=== PATIENT | female | born 1970 | race Caucasian/White ===

== ENCOUNTER 2019-04-30 20:12 | Inpatient (IN) | payer BC ==
[~2019-04-30] VITALS: Ht 162.5 cm; Wt 54.4 kg
[~2019-04-30 20:12] MED LIST: DAYPRO600 M1 PO; VICODIN 500 MG-1 TAB PO
[2019-04-30 20:13] VITALS: BP 116/68
[2019-04-30 21:25] LABS: BASO % 0.7 % (0.0-1.0); EOS # 0.2 10*3/uL (0.0-0.4); EOS % 3.4 % (1.0-4.0); HEMATOCRIT 38.8 % (37.0-47.0); HEMOGLOBIN 12.7 g/dl (12.0-16.0); LYMPH % 34.7 % (27.0-41.0); MEAN CORPUSCULAR HGB 31.4 pg (27.0-31.0); MEAN CORPUSCULAR HGB CONC 32.7 g/dl (33.0-37.0); MEAN PLATELET VOLUME 9.5 fl (9.6-12.3); MONO # 0.5 10*3/uL (0.1-1.0); MONO % 8.4 % (3.0-9.0); NEUT # 3.1 10*3/uL (2.3-7.9); NEUT % 52.6 % (47.0-73.0); PLATELET COUNT AUTOMATED 149 10*3/uL (130-400); RED BLOOD COUNT 4.04 10*6/uL (4.10-5.10); RED CELL DISTRI WIDTH 12.6 % (0-14.5); WHITE BLOOD COUNT 5.8 10*3/uL (4.8-10.8)
[2019-04-30 21:42] LABS: ALBUMIN 3.4 gm/dl (3.1-4.5); ALKALINE PHOSPHATASE 414 U/L (45-117); BUN 23 mg/dl (7-24); CHLORIDE 109 mmol/L (98-107); CREATININE 0.91 mg/dL (0.55-1.02); LIPASE 210 U/L (73-393); POTASSIUM 3.8 mmol/L (3.5-5.1); SGOT/AST 97 IU/L (3-35); SGPT/ALT 172 U/L (12-78); SODIUM 139 mmol/L (136-145); TOTAL PROTEIN 6.3 gm/dL (6.4-8.2)
--- NOTE | 2019-04-30 22:50 | NUR ---
PATIENT STATES THAT HER PAIN IS MUCH BETTER NOW THEN BEFORE. PATIENT WITH NO OTHER COMPLAINTS.
[2019-04-30 22:55] LABS: BILIRUBIN NEGATIVE (NEGATIVE); BLOOD 1+ (NEGATIVE); CLARITY CLEAR (CLEAR); COLOR YELLOW (YELLOW); GLUCOSE NEGATIVE (NEGATIVE); KETONE NEGATIVE (NEGATIVE); LEUKO ESTERASE NEGATIVE (NEGATIVE); NITRITE NEGATIVE (NEGATIVE); SPECIFIC GRAVITY 1.015 (1.005-1.030); UROBILINOGEN 0.2 E.U./dl (0.2-1.0)
[2019-04-30 23:05] LABS: BACTERIA TRACE; EPITHELIAL CELLS 0-2; YEAST TRACE
[2019-05-01 01:30] VITALS: BP 120/72
--- NOTE | 2019-05-01 02:03 | NUR ---
PATIENT SWITCHED TO FLOOR BED.
[2019-05-01 04:10] VITALS: BP 108/62
--- NOTE | 2019-05-01 04:10 | NUR ---
Time: 409 A 48 year old FEMALE admitted to 5E under services of JUVE PATRICK DO. Pt. arrived via bed from ER. Chief complaint: TRANSAMINITIS, ABDOMINAL PAIN. GRANT GOMES
[2019-05-01 06:42] LABS: BASO % 0.7 % (0.0-1.0); EOS # 0.2 10*3/uL (0.0-0.4); EOS % 5.7 % (1.0-4.0); HEMATOCRIT 38.7 % (37.0-47.0); HEMOGLOBIN 12.7 g/dl (12.0-16.0); LYMPH # 1.5 10*3/uL (1.3-4.4); LYMPH % 37.8 % (27.0-41.0); MEAN CELL VOLUME 96.5 fl (81.0-99.0); MEAN CORPUSCULAR HGB 31.7 pg (27.0-31.0); MEAN CORPUSCULAR HGB CONC 32.8 g/dl (33.0-37.0); MEAN PLATELET VOLUME 9.5 fl (9.6-12.3); MONO # 0.4 10*3/uL (0.1-1.0); MONO % 9.1 % (3.0-9.0); NEUT # 1.9 10*3/uL (2.3-7.9); NEUT % 46.5 % (47.0-73.0); PLATELET COUNT AUTOMATED 141 10*3/uL (130-400); RED BLOOD COUNT 4.01 10*6/uL (4.10-5.10); RED CELL DISTRI WIDTH 12.6 % (0-14.5); WHITE BLOOD COUNT 4.1 10*3/uL (4.8-10.8)
[2019-05-01 06:57] LABS: ALBUMIN 3.1 gm/dl (3.1-4.5); BUN 18 mg/dl (7-24); CHLORIDE 110 mmol/L (98-107); CHOLESTEROL 335 mg/dL (<200); CREATININE 0.87 mg/dL (0.55-1.02); PHOSPHOROUS 4.4 mg/dL (2.5-4.9); SGOT/AST 78 IU/L (3-35); SGPT/ALT 147 U/L (12-78); SODIUM 141 mmol/L (136-145); TRIGLYCERIDES 39 mg/dl (<150); VLDL CHOLESTEROL 8 mg/dL (6-40)
[2019-05-01 07:02] LABS: ALKALINE PHOSPHATASE 366 U/L (45-117); HDL CHOLESTEROL 88 mg/dl (40-60); LDL CHOLESTEROL 239 mg/dL (9-159)
[2019-05-01 08:00] VITALS: BP 94/60
[2019-05-01 12:00] VITALS: BP 100/55
--- NOTE | 2019-05-01 15:07 | NUR ---
PT DISCHARGED HOME AT THIS TIME. GENERAL SURGERY NUMBER PROVIDED AT DISCHARGE PER PT REQUEST. HEPLOCK REMOVED. PT AMBULATED OFF THE FLOOR.
[2019-05-02 16:05] LABS: HEPATITIS B SURFACE AG Negative (Negative); HEPATITIS C VIRUS ANTIBODY <0.1 s/co (0.0-0.9)
== END 2019-05-01 15:16 | disposition home or self-care (01) | DRG 445 ==
LOC: ED 20:12 → EDHOLD 05-01 01:05 → 5E 05-01 03:50
PROVIDERS: Physician Assistant; Student in an Organized Health Care Education/Training Program; ADMIT Emergency Medicine
DX: K81.9 Cholecystitis, unspecified (principal); E44.1 Mild protein-calorie malnutrition; R74.0 Nonspecific elevation of levels of transaminase and lactic acid dehydrogenase [LDH]; K21.9 Gastro-esophageal reflux disease without esophagitis; K76.0 Fatty (change of) liver, not elsewhere classified; D72.819 Decreased white blood cell count, unspecified; E87.8 Other disorders of electrolyte and fluid balance, not elsewhere classified; E78.5 Hyperlipidemia, unspecified; E55.9 Vitamin D deficiency, unspecified; K59.00 Constipation, unspecified; K82.8 Other specified diseases of gallbladder; Z82.3 Family history of stroke; Z68.20 Body mass index [BMI] 20.0-20.9, adult

== ENCOUNTER → 2021-12-03 | Outpatient (CLI) | payer OTHER | END | disposition home or self-care (01) | LOC: RAD 13:57 | PROVIDERS: ATTEND Chiropractor | DX: M43.17 Spondylolisthesis, lumbosacral region (principal); M47.812 Spondylosis without myelopathy or radiculopathy, cervical region ==